=== PATIENT | male | born 2005 | race Caucasian/White ===

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

== ENCOUNTER 2023-03-22 12:56 | Emergency (ER) | payer OTHER ==
[~2023-03-22] VITALS: Ht 175.3 cm; Wt 58.1 kg
[2023-03-22 13:04] VITALS: BP 131/87
[2023-03-22] MEDS ORDERED: Vibramycin100 MG PO (14:24)
== END 2023-03-22 14:30 | disposition home or self-care (01) ==
LOC: ER 12:56
DX: A69.20 Lyme disease, unspecified (principal); Z88.0 Allergy status to penicillin
CPT/HCPCS: A9270

== ENCOUNTER → 2024-04-05 | Outpatient (CLI) | payer OTHER ==
[~2024-04-05] MED LIST changes: +Vibramycin100 MG PO
== END ==
LOC: LAB SHORT 09:30 → LAB 09:30
DX: H60.62 Unspecified chronic otitis externa, left ear (principal)
CPT/HCPCS: 87070; 87077; 87106; 87186; 87205

== ENCOUNTER → 2024-05-23 | Outpatient (CLI) | payer OTHER | END | disposition home or self-care (01) | LOC: LAB SHORT 17:52 | DX: H60.502 Unspecified acute noninfective otitis externa, left ear (principal); H92.01 Otalgia, right ear | CPT/HCPCS: 87070; 87205 ==

== ENCOUNTER → 2024-06-26 | Outpatient (CLI) | payer OTHER | LOC: LAB 14:00 → LAB SHORT 14:00 | DX: H60.313 Diffuse otitis externa, bilateral (principal); B36.9 Superficial mycosis, unspecified | CPT/HCPCS: 87070; 87075; 87077; 87106; 87186; 87205 ==